=== PATIENT | female | born 1995 | race Caucasian/White ===

== ENCOUNTER 2019-07-13 20:38 | Emergency (ER) | payer BC, SELFPAY ==
[2019-07-13] MEDS ORDERED: KETOROLAC 30 MG/ML INJ ONE (21:13)
[2019-07-13 21:26] LABS: Absolute Lymphocytes (CBC) 1.6 K/uL (0.7-4.9); Basophils % 0.3 % (0-1.3); Hematocrit 40.7 % (36.0-45.0); Lymphocytes % 15.1 % (15.3-44.8); MPV 9.8 fL (7.6-11.3); RBC Red Blood Cell Count 5.08 M/uL (3.86-4.86)
[2019-07-13 21:43] LABS: Albumin 3.8 g/dL (3.4-5.0); Bilirubin Direct 0.1 mg/dL (0-0.2); Bilirubin Total 0.4 mg/dL (0.2-1.0); Potassium 3.4 mmol/L (3.5-5.1); Protein, Total 7.4 g/dL (6.4-8.2)
--- NOTE | 2019-07-13 21:47 | RAD REPORT ---
EXAM DESCRIPTION: CT - Stone Protocol - 07/13/2019 9:33 pm CLINICAL HISTORY: Abdominal pain. Flank pain COMPARISON: None. TECHNIQUE: Computed axial tomography of the abdomen pelvis was obtained without oral or IV contrast. Lack of IV and oral contrast limits evaluation of solid organs, bowel, and vessels. Coronal reformat marcellus images were obtained and reviewed. All CT scans are performed using dose optimization technique as appropriate and may include automated exposure control or mA/KV adjustment according to patient size. FINDINGS: Multiple, bilateral renal calculi. Eafc-zf-piihuwwt right hydronephrosis. Right ureter is dilated. 6 millimeter calculus distal right ureter Hounsfield unit 930 The liver, spleen, pancreas and adrenals appear grossly normal There is no evidence of diverticulitis. The appendix appears normal Small amount of free fluid IMPRESSION: A 6 millimeter calculus distal right ureter resulting in mild to moderate right hydronep hrosis
[2019-07-13] MEDS ORDERED: TAMSULOSIN 0.4 MG SR CAP ONE (21:58)
[2019-07-13] MEDS ORDERED: Magnesium Sulfate 2gm IVPB 2 G/50 ML BAG IV ONE (21:58)
--- NOTE | 2019-07-13 22:11 | ER ---
Nurse's Notes [facility] Name: Mari Gonzalez Age: 23 yrs Sex: Female : 1995 Arrival Date: 07/13/2019 Time: 20:41 Bed 20 Private MD: Diagnosis: Calculus of kidney and ureter Presentation: 07/12 20:48 Chief complaint: Patient states: right flank pain started at 1500 today, 5/10 at the rv moment. also complaining of vaginal pain, nausea, and vomiting. Coronavirus screen: Proceed with normal triage. Ebola Screen: No symptoms or risks identified at this time. Initial Sepsis Screen: Does the patient meet any 2 criteria? No. Patient's initial sepsis screen is negative. Does the patient have a suspected source of infection? No. Patient's initial sepsis screen is negative. Risk Assessment: Do you want to hurt yourself or someone else? Patient reports no desire to harm self or others. Onset of symptoms was July 13, 2019 at 15:00. 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 - Social history:: Smoking status: Patient denies any tobacco usage or history of. Screenin:03 Abuse screen: Denies threats or abuse. Nutritional screening: No deficits noted. ea Tuberculosis screening: No symptoms or risk factors identified. Fall Risk None identified. Assessment: 21:07 General: Appears uncomfortable, Behavior is calm, cooperative, appropriate for age. ea Pain: Complains of pain in right flank. Neuro: Level of Consciousness is awake, alert, obeys commands, Oriented to person, place, time, situation. Cardiovascular: Patient's skin is warm and dry. Respiratory: Airway is patent Respiratory effort is even, unlabored, Respiratory pattern is regular, symmetrical. Derm: Skin is pink, warm \T\ dry. 21:57 Reassessment: Patient and/or family updated on plan of care and expected duration. Pain ea level reassessed. Patient is alert, oriented x 3, equal unlabored respirations, skin warm/dry/pink. Pt reports pain has decreased. 22:17 Reassessment: Patient and/or family updated on plan of care and expected duration. Pain ea level reassessed. Patient is alert, oriented x 3, equal unlabored respirations, skin warm/dry/pink. Discharge instruction given to patient, verbalized the understanding of instruction. Awaiting on Mag to complete. 22:45 Reassessment: Patient and/or family updated on plan of care and expected duration. Pain ea level reassessed. Patient is alert, oriented x 3, equal unlabored respirations, skin warm/dry/pink. Pt left ED ambulatory tolerating well. Vital Signs: 20:48 BP 137 / 103; Pulse 73; Resp 18; Temp 97.7; Pulse Ox 100% ; Weight 68.04 kg; Height 5 rv ft. 6 in. (167.64 cm); Pain 5/10; 21:58 BP 114 / 75; Pulse 70; Resp 18; Pulse Ox 100% ; ea 22:18 BP 112 / 78; Pulse 71; Resp 18; Pulse Ox 100% ; ea 20:48 Body Mass Index 24.21 (68.04 kg, 167.64 cm) rv ED Course: 20:41 Patient arrived in ED. mr 20:44 Serena Jensen, [facility]ESSICA [facility]. kb 20:44 Mak Ro MD is Attending Physician. kb 20:50 Triage completed. rv 20:51 Arm band placed on Patient placed in the treatment room, on a stretcher, Patient rv notified of wait time. 21:00 Wendy Dang, STEFANO is Primary Nurse. ea 21:03 Patient has correct armband on for positive identification. Placed in gown. Bed in low ea position. Call light in reach. Side rails up X 1. 21:04 Radiology exam delayed due to test not completed at this time. mw3 21:20 Inserted saline lock: 20 gauge in right antecubital area, using aseptic technique. ea ,using aseptic technique. per [facility] tech Blood collected. 21:34 CT Stone Protocol In Process Unspecified. EDMS 22:17 No provider procedures requiring assistance completed. ea 22:44 IV discontinued, intact, bleeding controlled, No redness/swelling at site. Pressure ea dressing applied. Administered Medications: 21:10 Drug: TORadol - Ketorolac 15 mg Route: IVP; Site: right antecubital; ea 21:50 Follow up: Response: No adverse reaction ea 21:55 Follow up: Response: Pain is decreased ea 21:56 Drug: Magnesium Sulfate 2 grams Route: IVPB; Infused Over: 1 hrs; Site: right ea antecubital; 22:40 Follow up: Response: No adverse reaction; IV Status: Completed infusion ea 21:56 Drug: Flomax 0.4 mg Route: PO; ea 22:47 Follow up: Response: No adverse reaction ea Outcome: 22:10 Discharge ordered by . kb 22:17 Discharge instructions given to patient, Instructed on discharge instructions, follow ea up and referral plans. medication usage, Demonstrated understanding of instructions, follow-up care, medications, Prescriptions given X 3. 22:44 Discharged to home ambulatory. ea 22:44 Condition: stable 22:46 Patient left the ED. ea Signatures: Dispatcher [employer] EDMS Serena Jensen, YESSICA LEMONS-Archana Giraldo Elena, RN RN Angeline Anna mw3 Vipul Vazquez RN RN rv Corrections: (The following items were deleted from the chart) 20:51 20:50 LMP 06/21/2019 rv rv
--- NOTE | 2019-07-13 22:12 | EDPHYS ---
Physician Documentation [facility] Name: Mari Gonzalez Age: 23 yrs Sex: Female : 1995 Arrival Date: 07/13/2019 Time: 20:41 Bed 20 Private MD: ED Physician Mak Ro HPI: 07/12 21:04 This 23 yrs old Female presents to ER via Ambulatory with complaints of Flank kb Pain. 21:04 The patient complains of pain in the right flank. The pain does not radiate. Onset: The kb symptoms/episode began/occurred today, at 15:00. Modifying factors: The symptoms are alleviated by nothing. the symptoms are aggravated by nothing. Associated signs and symptoms: The patient has no apparent associated signs or symptoms. Severity of pain: At its worst the pain was moderate in the emergency department the pain is unchanged. The patient has not experienced similar symptoms in the past. The patient has not recently seen a physician. Pt reports right lateral abd pain/flank pain that started at 1500 today. Denies urinary symptoms. Reports she has had vaginal dryness for a few days and now it feels like the pain radiates from lateral abd to vagina.. 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 - Social history:: Smoking status: Patient denies any tobacco usage or history of. ROS: 21:03 Constitutional: Negative for fever, chills, and weight loss, Neck: Negative for injury, kb pain, and swelling, Cardiovascular: Negative for chest pain, palpitations, and edema, Respiratory: Negative for shortness of breath, cough, wheezing, and pleuritic chest pain, Back: Negative for injury and pain, MS/Extremity: Negative for injury and deformity, Skin: Negative for injury, rash, and discoloration, Neuro: Negative for headache, weakness, numbness, tingling, and seizure. 21:03 Abdomen/GI: Positive for abdominal pain, Negative for nausea, vomiting, and diarrhea, constipation. 21:03 : Positive for flank pain, vaginal pain. Exam: 21:03 Constitutional: This is a well developed, well nourished patient who is awake, alert, kb and in no acute distress. Head/Face: Normocephalic, atraumatic. Chest/axilla: Normal chest wall appearance and motion. Nontender with no deformity. No lesions are appreciated. Cardiovascular: Regular rate and rhythm with a normal S1 and S2. No gallops, murmurs, or rubs. Normal PMI, no JVD. No pulse deficits. Respiratory: Lungs have equal breath sounds bilaterally, clear to auscultation and percussion. No rales, rhonchi or wheezes noted. No increased work of breathing, no retractions or nasal flaring. Back: No spinal tenderness. No costovertebral tenderness. Full range of motion. Skin: Warm, dry with normal turgor. Normal color with no rashes, no lesions, and no evidence of cellulitis. MS/ Extremity: Pulses equal, no cyanosis. Neurovascular intact. Full, normal range of motion. Neuro: Awake and alert, GCS 15, oriented to person, place, time, and situation. Cranial nerves II-XII grossly intact. Motor strength 5/5 in all extremities. Sensory grossly intact. Cerebellar exam normal. Normal gait. 21:03 Abdomen/GI: Inspection: abdomen appears normal, Bowel sounds: normal, in all quadrants, Palpation: soft, in all quadrants, mild abdominal tenderness, in the right upper quadrant and right lower quadrant. Vital Signs: 20:48 BP 137 / 103; Pulse 73; Resp 18; Temp 97.7; Pulse Ox 100% ; Weight 68.04 kg; Height 5 rv ft. 6 in. (167.64 cm); Pain 5/10; 21:58 BP 114 / 75; Pulse 70; Resp 18; Pulse Ox 100% ; ea 22:18 BP 112 / 78; Pulse 71; Resp 18; Pulse Ox 100% ; ea 20:48 Body Mass Index 24.21 (68.04 kg, 167.64 cm) rv MDM: 20:52 Patient medically screened. kb 21:03 Data reviewed: vital signs, nurses notes. Data interpreted: Pulse oximetry: on room air kb is 100 %. Interpretation: normal. 22:09 Counseling: I had a detailed discussion with the patient and/or guardian regarding: the kb historical points, exam findings, and any diagnostic results supporting the discharge/admit diagnosis, lab results, radiology results, the need for outpatient follow up, a urologist, to return to the emergency department if symptoms worsen or persist or if there are any questions or concerns that arise at home. ED course: Pain controlled at this time. Pt educated on plan for outpatient follow up. Verbal understanding received. . 07/12 21: Order name: Basic Metabolic Panel; Complete Time: 21:45 kb 07/12 21: Order name: CBC with Diff; Complete Time: 21:35 kb 07/12 21: Order name: Hepatic Function; Complete Time: 21:45 kb 07/12 21: Order name: Lipase; Complete Time: 21:45 kb 07/12 21:19 Order name: Urine Dipstick--Ancillary (enter results); Complete Time: 22:32 sg 07/12 21:19 Order name: Urine --Ancillary (enter results); Complete Time: 22:32 sg 07/12 20:53 Order name: Urine Dipstick-Ancillary (obtain specimen); Complete Time: 21:20 kb 07/12 21: Order name: IV Saline Lock; Complete Time: 21:20 kb 07/12 21: Order name: Labs collected and sent; Complete Time: 21:20 kb 07/12 21: Order name: CT Stone Protocol; Complete Time: 21:48 kb 07/12 21: Order name: Urine Test (obtain specimen); Complete Time: 21:20 kb Administered Medications: 21:10 Drug: TORadol - Ketorolac 15 mg Route: IVP; Site: right antecubital; ea 21:50 Follow up: Response: No adverse reaction ea 21:55 Follow up: Response: Pain is decreased ea 21:56 Drug: Magnesium Sulfate 2 grams Route: IVPB; Infused Over: 1 hrs; Site: right ea antecubital; 22:40 Follow up: Response: No adverse reaction; IV Status: Completed infusion ea 21:56 Drug: Flomax 0.4 mg Route: PO; ea 22:47 Follow up: Response: No adverse reaction ea Disposition: 07/13 06:43 Co-signature as Attending Physician, Mak Ro MD I agree with the assessment and 4 plan of care. Disposition: 07/13/19 22:10 Discharged to Home. Impression: Calculus of kidney and ureter. - Condition is Stable. - Discharge Instructions: Kidney Stones, [id number], Dietary Guidelines to Help Prevent Kidney Stones. - Prescriptions for Zofran 4 mg Oral Tablet - take 1 tablet by ORAL route every 6 hours As needed; 20 tablet. Flomax 0.4 mg Oral Capsule, Sust. Release 24 hr - take 1 capsule by ORAL route once daily; 10 capsule. Diclofenac Sodium 75 mg Oral Tablet, Delayed Release (E.C.) - take 1 tablet by ORAL route 2 times per day As needed; 30 tablet. - Medication Reconciliation Form, Thank You Letter, Antibiotic Education, Prescription Opioid Use form. - Follow up: Emergency Department; When: As needed; Reason: Worsening of condition. Follow up: Private Physician; When: 2 - 3 days; Reason: Recheck today's complaints, Continuance of care, Re-evaluation by your physician. Signatures: Dispatcher [employer] EDSerena Llamas, Wendy Sanchez RN RN Mak Min MD MD tw4 Vipul Vazquez RN RN rv Corrections: (The following items were deleted from the chart) 07/12 22:46 22:10 07/13/2019 22:10 Discharged to Home. Impression: Calculus of kidney and ureter. ea Condition is Stable. Forms are Medication Reconciliation Form, Thank You Letter, Antibiotic Education, Prescription Opioid Use. Follow up: Emergency Department; When: As needed; Reason: Worsening of condition. Follow up: Private Physician; When: 2 - 3 days; Reason: Recheck today's complaints, Continuance of care, Re-evaluation by your physician. kb
[2019-07-13 22:27] LABS: Urine Blood 2+ (NEG); Urine Glucose NEGATIVE (NEG); Urine Protein NEGATIVE (NEG); Urine Specific Gravity >1.030 (1.005-1.030)
[2019-07-13 23:25] VITALS: TEMP 97.7; O2SAT 100
[2019-07-13 23:27] VITALS: BP 112/78
== END 2019-07-13 22:46 | disposition home or self-care (01) ==
LOC: ER 20:38
DX: N20.2 Calculus of kidney with calculus of ureter (principal)
CPT/HCPCS: 36415; 74176; 76377; 80048; 80076; 81003; 81025; 83690; 85025; 96365; 96375; 99284; J3475

== ENCOUNTER 2019-07-16 18:06 | Inpatient (IN) | payer SELFPAY ==
--- OUTSIDE RECORDS SUMMARY | 2019-07-16 18:08 | XMS REPORT | Summary of Care ---
:1995 Author Organization [facility] Address [address] [place] [id number] Care Team Providers Name Role Phone Adilson Swain MD Primary Care Provider Pcp, Does Not Have A Unavailable Pcp, Does Not Have A Unavailable Reason for Referral (Routine) Status Reason Specialty Diagnoses / Referred By Referred To Procedures Contact Contact New Request Pediatric Diagnoses 22 weeks gestation of Encounter for supervision of normal first , second trimester Apolinar Ortiz Procedures CONSULT GENETICS TERRIE Espinoza [address] [place] [address] [address] [place] [address] Reason for Visit Reason Comments ROUTINE VISIT Auth/Cert Status Reason Specialty Diagnoses / Referred By Referred To Procedures Contact Contact Clinical Medical Diagnoses Currently in first trimester with unknown gestational age [facility] Lab Laboratory Procedures AFP MATERNAL SERUM #1 [address] [facility] [place] [address] Encounter Details Date Type Department Care Team Description 10/03/2018 Routine [facility] Women's Olga Ortiz, Encounter for supervision of normal first , second trimester (Primary Dx); Visit Carmen FALCON 22 weeks gestation of [address] [place] [phone] Allergies No Known Allergiesdocumented as of this encounter (statuses as of 10/03/2018) Medications Medication Sig Dispensed Refills Start Date End Date Status Take by mouth. 0 Acti ve 123/iron/folic/omeg3s (ONE-A-DAY WOMEN'S 1 ORAL) [id number],carb,glu-FA- Take 1 TAB-CAP/M2 30 Each 9 06/12/19 19 Active dss-dha (CITRANATAL by mouth daily. DHA, ALGAL OIL,) 27 mg iron-1 mg -50 mg-250 mg CmpkIndications: Supervision of normal first in first trimester documented as of this encounter (statuses as of 10/03/2018) Active Problems Estimated Date of Delivery Comments Yes 02/04/2019 Based on last menstr ual period of 04/30/2018 (Within Days) No known active problemsdocumented as of this encounter (statuses as of 10/03/2018) Immunizations Name Administration Dates Next Due Influenza Virus Vaccine Quad .5 mL IM 6+ MO 06/11/2018 Tdap 01/22/2017 documented as of this encounter Social History Tobacco Use Types Packs/Day Years Used Date Never Smoker Smokeless Tobacco: Never Used Alcohol Use Drinks/Week oz/Week Comments No Estimated Date of Delivery Comments Yes 02/04/2019 Based on last menstr ual period of 04/30/2018 (Within Days) Sex Assigned at Date Recorded Not on file Job Start Date Occupation Industry Not on file Not on file Not on file Travel History Travel Start Travel End No recent travel history available. documented as of this encounter Last Filed Vital Signs Vital Sign Reading Time Taken Comments Blood Pressure 124/73 10/03/2018 4:15 PM CDT Pulse 77 10/03/2018 4:15 PM CDT Temperature 36.4 C (97.6 F) 10/03/2018 4:15 PM CDT Respiratory Rate 18 10/03/2018 4:15 PM CDT Oxygen Saturation - - Inhaled Oxygen Concentration - - Weight 72.6 kg (160 lb) 10/03/2018 4:15 PM CDT Height 167.6 cm (5' 6") 10/03/2018 4:15 PM CDT Body Mass Index 25.82 10/03/2018 4:15 PM CDT documented in this encounter Progress Notes Olga Ortiz PA-C - 10/03/2018 4:00 PM CDT Chief complaint: Chief Complaint Patient presents with ROUTINE VISIT HPI Mari Gonzalez is a 23 year old female @ 22w2d coming in for PN visit. She has no complaints and reports is doing well. Patient denies any abnormal/pelvic pain, discharge, dysuria, hematuria, abnormal bleeding. Histories OB History Para Term AB Living 1 0 0 0 0 SAB TAB Ectopic Multiple Live Births 0 0 0 # Outcome Date GA Lbr Oswaldo/2nd Weight Sex Delivery Anes PTL Lv 1 Current No past medical history on file. Family History Problem Relation Age of Onset Cervical Cancer Mother No Significant Medical Problems Father Lung Cancer Maternal Grandfather Cancer Paternal Grandmother Mouth or tongue cancer Family Status Relation Name Status Mo Fa Alive MGFa (Not Specified) PGMo Alive No past surgical history on file. Social History Socioeconomic History Marital status: Single Spouse name: Not on file Number of children: Not on file Years of education: Not on file Highest education level: Not on file Occupational History Not on file Social Needs Financial resource strain: Not on file Food insecurity: Worry: Not on file Inability: Not on file Transportation needs: Medical: Not on file Non-medical: Not on file Tobacco Use Smoking status: Never Smoker Smokeless tobacco: Never Used Substance and Sexual Activity Alcohol use: No Drug use: No Sexual activity: Yes Partners: Male Lifestyle Physical activity: Days per week: Not on file Minutes per session: Not on file Stress: Not on file Relationships Social connections: Talks on phone: Not on file Gets together: Not on file Attends hoahaoism service: Not on file Active member of club or organization: Not on file Attends meetings of clubs or organizations: Not on file Relationship status: Not on file Intimate partner violence: Fear of current or ex partner: Not on file Emotionally abused: Not on file Physically abused: Not on file Forced sexual activity: Not on file Other Topics Concern Not on file Social History Narrative Merged History Encounter Data from: 01/22/17 Enc Dept: [facility]ARE 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 Medications Mari has a current medication list which includes the following prescription(s): [id number],carb,tww-hb-cwv-dha and 123/iron/folic/omeg3s. Review of Systems Constitutional: Negative for appetite change, fatigue and fever. HENT: Negative for rhinorrhea and sore throat. Eyes: Negative for pain and itching. Respiratory: Negative for cough, chest tightness and shortness of breath. Breasts: Negative for discharge, mass and pain. Cardiovascular: Negative for chest pain, palpitations and leg swelling. Gastrointestinal: Negative for abdominal pain, constipation, diarrhea and nausea. Genitourinary: Negative for bladder incontinence, dysuria, vaginal discharge, difficulty urinating, vaginal pain and pelvic pain. Musculoskeletal: Negative for gait problem and myalgias. Skin: Negative for rash. Neurological: Negative for dizziness and headaches. Psychiatric/Behavioral: Negative for suicidal ideas. The patient is not nervous/anxious. Endocrine: Negative for hair loss. BP 124/73 (BP Location: Left arm, Patient Position: Sitting, BP CUFF SIZE: Adult Medium) | Pulse 77 | Temp 36.4 C (97.6 F) (Oral) | Resp 18 | Ht 5' 6" (1.676 m) | Wt 160 lb (72.6 kg) | LMP 04/30/2018 (Within Days) | BMI 25.82 kg/m Pregravid BMI: 23.1 Physical Exam Vitals reviewed. Constitutional: She is oriented to person, place, and time. She appears well- developed and well-nourished. Neck: No mass. No thyromegaly palpated. No neck adenopathy. Cardiovascular: Regular rate and rhythm. Pulmonary/Chest: Normal inspiratory effort. Abdominal: Abdomen is soft. No tenderness present. No hernia palpated or inspected. Neuro/Psychiatric: She has a normal mood and affect. She is oriented to person, place, and time. Skin: Skin normal. Lymphadenopathy: No neck adenopathy present. No axillary adenopathy present. No inguinal adenopathy present. Assessment/Plan SEE OB SUMMARY Return to clinic in 4 weeks. Discussed treatment options. Reviewed patient instructions and provided printed copy. Activity restrictions: As tolerated This visit did not involve counseling and coordination that comprised more than 50% of the visit time. 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 [place], [place] [address] [phone] Health Maintenance Due Date Last Done Comments VARICELLA VACCINES (1 of 2 - 13+ 2006 2-dose series) HPV VACCINES (1 - Female 3-dose 2008 series) PAP SMEAR 2014 INFLUENZA VACCINE 10/27/2018 06/11/2018 DTaP,Tdap,and Td Vaccines (2 - Td) 01/22/2027 01/22/2017 PNEUMOCOCCAL 0-64 YEARS COMBINED Aged Out No longer eligible based on SERIES patient's age to complete this topic documented as of this encounter Procedures Procedure Name Priority Date/Time Associated Diagnosis Comme nts POCT URINALYSIS W/O Routine 10/03/2018 22 weeks gestation of Results for this SPECIFIC GRAVITY procedure a re in the results section . documented in this encounter Results POCT URINALYSIS W/O SPECIFIC GRAVITY (10/03/2018) Pathologist Sig nature POCT PH U N/A 5 - 8 mg/dl POCT U LEUK EST N/A Negative - Negative POCT U NIT N/A Negative - Negative POCT U PROT Negative Negative - Negative POCT U GLU Negative Negative - Negative POCT U KETONE N/A Negative - Negative POCT U BLD N/A Negative - Negative Specimen Urine - URINE, CLEAN CATCH documented in this encounter Visit Diagnoses Diagnosis Encounter for supervision of normal firs t , second trimester - Primary 22 weeks gestation of state, incidental documented in this encounter Insurance Payer Benefit Plan / Subscriber ID Effective Phone Address T ype Group Dates [facility] [id number] 2017-Prese [phone]PO/POS nt [id number] [place], [place] [id number] [place] [address] [phone] 2018-[facility] HE[facility] - MANAGED MEDICAID documented as of this encounter
--- OUTSIDE RECORDS SUMMARY | 2019-07-16 18:08 | XMS REPORT | Summary of Care ---
:1993 Author Organization [facility] - Health Address [address] [place] [address] Care Team Providers Name Role Phone Adilson Swain MD Primary Care Provider Pcp, Does Not Have A Unavailable Pcp, Does Not Have A Unavailable Encounter Details Date Type Department Care Team Description 10/03/2018 Orders Only [facility] Doctor Unassigned, No 301 [facility] [place] [address] 301 [place] [address] Allergies No Known Allergiesdocumented as of this encounter (statuses as of 10/03/2018) Medications Medication Sig Dispensed Refills Start Date End Date Status Take by mouth. 0 Acti ve 123/iron/folic/omeg3s (ONE-A-DAY WOMEN'S 1 ORAL) BKF30-bgez,carb,glu-FA- Take 1 TAB-CAP/M2 30 Each 9 06/12/19 [...] of this encounter Last Filed Vital Signs Not on filedocumented in this encounter Plan of Treatment Date Type Specialty Care Team Description 10/11/2018 Inking Machine Tender Visit Obstetrics & Ultrasound, Adc Mfdennys Gynecology 10/31/2018 Routine Visit Obstetrics & Swain, Jeannie De Anda MD Gynecology [address] [place] [address] DR. [place], [place] [address] [phone] Health Maintenance Due Date Last Done Comments [...] Name Priority Date/Time Associated Diagnosis Comme nts ASSIGNMENT OF BENEFITS Routine 10/03/2018 4:45 PM CDT documented in this encounter Results Not on filedocumented in this encounter Insurance Payer Benefit Plan / Subscriber ID Effective Phone Address T ype Group Dates BCBS [facility] [place] [id number] 2017-Prese [phone] O BOX PPO/POS nt [phone] [id number] [place] [address] [facility] CHILDRENS xxxxxxxxx 2018-Prese [place] CHILDRENS HEALTH HEALTH PLAN - MANAGED MEDICAID documented as of this encounter
--- OUTSIDE RECORDS SUMMARY | 2019-07-16 18:08 | XMS REPORT | Summary of Care ---
:1993 Author Organization [facility] Address [address] [place] [address] Care Team Providers Name Role Phone Adilson Swain MD Primary Care Provider Pcp, Does Not Have A Unavailable Pcp, Does Not Have A Unavailable Reason for Visit Reason Comments LAB WORK Auth/Cert Status Reason Specialty Diagnoses / Referred By Referred To Procedures Contact Contact Clinical Medical Diagnoses Currently in first trimester with unknown gestational age [facility] Lab Laboratory Procedures AFP MATERNAL SERUM #1 [address] [facility] [place] [address] Encounter Details Date Type Department Care Team Description 10/03/2018 Cake Decorator Visit [facility] Jeannie Swain MD [address] [facility] [address] Carlisle [place] [facility] [place] [address] Supervision of normal first in first trimester; Phlebotomy 1, [facility] Lab 18 weeks gestation of Lab-[address] [place] [address] Allergies No Known Allergiesdocumented as of this encounter (statuses as of 10/03/2018) Medications Medication Sig Dispensed Refills Start Date End Date Status Take by mouth. 0 Acti ve 123/iron/folic/omeg3s (ONE-A-DAY WOMEN'S 1 ORAL) UNP32-wzti,carb,glu-FA- Take 1 TAB-CAP/M2 30 Each 9 06/12/19 [...] Date Type Specialty Care Team Description 10/11/2018 Cake Decorator Visit Obstetrics & Ultrasound, Adc Mf Gynecology 10/31/2018 Routine Visit Obstetrics & Swain, Jeannie De Anda MD Gynecology [address] [place] [address] DR. [place], [place] [address] [phone] Name Type Priority Associated Diagnoses Date/Ti me ALPHA LAB Routine Supervision of normal 2018 5:02 PM CDT FETOPROTEIN-MATERNAL first in f irst SER trimester 18 weeks gestation of Health Maintenance Due Date Last Done Comments VARICELLA VACCINES (1 of 2 - 13+ 2006 2-dose series) HPV VACCINES (1 - Female 3-dose 2008 series) PAP SMEAR 2014 INFLUENZA VACCINE 10/27/2018 06/11/2018 DTaP,Tdap,and Td Vaccines (2 - Td) 01/22/2027 01/22/2017 PNEUMOCOCCAL 0-64 YEARS COMBINED Aged Out No longer eligible based on SERIES patient's age to complete this topic documented as of this encounter Results Not on filedocumented in this encounter Visit Diagnoses Diagnosis Supervision of normal first in first trimester 18 weeks gestation of state, incidental documented in this encounter Insurance Payer Benefit Plan / Subscriber ID Effective Phone Address T ype Group Dates [facility] [id number] 2017-Rebecca [phone] [address] B[address] PPO/POS nt [id number] [place] [address] [facility] xxxxxxxxx 2018-Rebecca [facility] CHILDRENS [facility] HEALTH PLAN - MANAGED MEDICAID documented as of this encounter
--- OUTSIDE RECORDS SUMMARY | 2019-07-16 18:09 | XMS REPORT | Summary of Care ---
:1993 Author Organization [facility] - Health Address [address] [place] [address] Care Team Providers Name Role Phone Adilson Swain MD Primary Care Provider Pcp, Does Not Have A Unavailable Pcp, Does Not Have A Unavailable Encounter Details Date Type Department Care Team Description 11/14/2018 Orders Only [facility] Doctor Unassigned, No 301 [facility] [place] [address] 301 [place] [address] Allergies No Known Allergiesdocumented as of this encounter (statuses as of 11/14/2018) Medications Medication Sig Dispensed Refills Start Date End Date Status Take by mouth. 0 Acti ve 123/iron/folic/omeg3s (ONE-A-DAY WOMEN'S 1 ORAL) TER36-yxod,carb,glu-FA- Take 1 TAB-CAP/M2 30 Each 9 06/12/19 19 Active dss-dha (CITRANATAL by mouth daily. DHA, ALGAL OIL,) 27 mg iron-1 mg -50 mg-250 mg CmpkIndications: Supervision of normal first in first trimester documented as of this encounter (statuses as of 11/14/2018) Active Problems Estimated Date of Delivery Comments Yes 02/04/2019 Based on last menstr ual period of 04/30/2018 (Within Days) No known active problemsdocumented as of this encounter (statuses as of 11/14/2018) Immunizations Name Administration Dates Next Due Influenza [...] Treatment Date Type Specialty Care Team Description 11/14/2018 Glass Furnace Tender Visit Clinical Medical Devin Ortiz, PAHiramC [address] [place] [address] [address] [place] [address] Laboratory 1, Adc Lab 11/28/2018 Routine Visit Obstetrics & Swain, Jeannie De Anda MD Gynecology [address] [place] [address] DRReyna [facility] [address] [place], [place] [address] Health Maintenance Due Date Last Done Comments VARICELLA VACCINES (1 of 2 - 13+ 2006 2-dose series) HPV VACCINES (1 - Female 3-dose 2008 series) PAP SMEAR 2014 INFLUENZA VACCINE (#1) 2018 06/11/2018 DTaP,Tdap,and Td Vaccines (2 - Td) 01/22/2027 01/22/2017 PNEUMOCOCCAL 0-64 YEARS COMBINED Aged Out No longer eligible based on SERIES patient's age to complete this topic documented as of this encounter Procedures Procedure Name Priority Date/Time Associated Diagnosis Comme nts ASSIGNMENT OF BENEFITS Routine 11/14/2018 10:14 AM CDT documented in this encounter Results Not on filedocumented in this encounter Insurance Payer Benefit Plan / Subscriber ID Effective Phone Address T ype Group Dates [facility] [id number] 2017-Rebecca [phone] P O BOX PPO/POS nt [phone] [place] [address] [facility] CHILDRENS xxxxxxxxx 2018-Rebecca Md [facility] HEALTH PLAN - MANAGED MEDICAID documented as of this encounter
--- OUTSIDE RECORDS SUMMARY | 2019-07-16 18:09 | XMS REPORT | Summary of Care ---
:1993 Author Organization [facility] - Health Address [address] [place] [address] Care Team Providers Name Role Phone Adilson Swain MD Primary Care Provider Pcp, Does Not Have A Unavailable Pcp, Does Not Have A Unavailable Encounter Details Date Type Department Care Team Description 09/05/2018 Orders Only [facility] Doctor Unassigned, No 301 [facility] [place] [address] 301 [place] [address] Allergies No Known Allergiesdocumented as of this encounter (statuses as of 10/04/2018) Medications Medication Sig Dispensed Refills Start Date End Date Status Take by mouth. 0 Acti ve 123/iron/folic/omeg3s (ONE-A-DAY WOMEN'S 1 ORAL) HRF69-lzsg,carb,glu-FA- Take 1 TAB-CAP/M2 30 Each 9 06/12/19 19 Active dss-dha (CITRANATAL by mouth daily. DHA, ALGAL OIL,) 27 mg iron-1 mg -50 mg-250 mg CmpkIndications: Supervision of normal first in first trimester documented as of this encounter (statuses as of 10/04/2018) Active Problems Estimated Date of Delivery Comments Yes 02/04/2019 Based on last menstr ual period of 04/30/2018 (Within Days) No known active problemsdocumented as of this encounter (statuses as of 10/04/2018) Immunizations Name Administration Dates Next Due Influenza [...] Date Type Specialty Care Team Description 10/11/2018 Baster Hand Visit Obstetrics & Ultrasound, Adc Mfdennys Gynecology 10/31/2018 Routine Visit Obstetrics & Swain, Jeannie De Anda MD Gynecology [address] [place] [address] DR. [place]isle [place], [place] [address] [phone] Health Maintenance Due Date Last Done Comments [...] Name Priority Date/Time Associated Diagnosis Comme nts PHYSICIAN ORDERS Routine 09/05/2018 12:01 AM CDT documented in this encounter Results Not on filedocumented in this encounter Insurance Payer Benefit Plan / Subscriber ID Effective Phone Address T ype Group Dates [place] [id number] 2017-Prese [phone] [address] B[address] PPO/POS nt [id number] [place] [address] [facility] CHILDRENS xxxxxxxxx 2018-Prese [place] CHILDRENS HEALTH HEALTH PLAN - MANAGED MEDICAID documented as of this encounter
--- OUTSIDE RECORDS SUMMARY | 2019-07-16 18:09 | XMS REPORT | Summary of Care ---
:1993 Author Organization [facility] Address [address] [place] [address] Care Team Providers Name Role Phone Adilson Swain MD Primary Care Provider Pcp, Does Not Have A Unavailable Pcp, Does Not Have A Unavailable Reason for Visit Reason Comments ROUTINE VISIT Encounter Details Date Type Department Care Team Description 10/31/2018 Routine [facility] Jeannie Swain am, MD [address] [place] [address] [address] Encounter for supervision of normal firs t , second trimester (Primary Dx); Visit Healthcare- Olga Ortiz PA-C [address] [place] [address] 208 [place] [address] 26 weeks gestation of [address], [address] [place] [address] Allergies No Known Allergiesdocumented as of this encounter (statuses as of 10/31/2018) Medications Medication Sig Dispensed Refills Start Date End Date Status Take by mouth. 0 Acti ve 123/iron/folic/omeg3s (ONE-A-DAY WOMEN'S 1 ORAL) ORY00-vube,carb,glu-FA- Take 1 TAB-CAP/M2 30 Each 9 06/12/19 19 Active dss-dha (CITRANATAL by mouth daily. DHA, ALGAL OIL,) 27 mg iron-1 mg -50 mg-250 mg CmpkIndications: Supervision of normal first in first trimester documented as of this encounter (statuses as of 10/31/2018) Active Problems Estimated Date of Delivery Comments Yes 02/04/2019 Based on last menstr ual period of 04/30/2018 (Within Days) No known active problemsdocumented as of this encounter (statuses as of 10/31/2018) Immunizations Name Administration Dates Next Due Influenza [...] Sign Reading Time Taken Comments Blood Pressure 117/77 10/31/2018 3:53 PM CDT Pulse 85 10/31/2018 3:53 PM CDT Temperature 36.9 C (98.5 F) 10/31/2018 3:53 PM CDT Respiratory Rate 18 10/31/2018 3:53 PM CDT Oxygen Saturation - - Inhaled Oxygen Concentration - - Weight 76 kg (167 lb 9.6 oz) 10/31/2018 3:53 PM CDT Height 167.6 cm (5' 6") 10/31/2018 3:53 PM CDT Body Mass Index 27.05 10/31/2018 3:53 PM CDT documented in this encounter Progress Notes Olga Ortiz PA-C - 10/31/2018 3:30 PM CDT Chief complaint: Chief Complaint Patient presents with ROUTINE VISIT HPI Mari Gonzalez is a 23 year old female @ 26w2d coming in for PN visit. 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 Medications Mari has a current medication list which includes the following prescription(s): zal06-xefs,carb,whq-yn-qzs-dha and 123/iron/folic/omeg3s. Review of Systems Constitutional: Negative [...] nervous/anxious. Endocrine: Negative for hair loss. BP 117/77 (BP Location: Right arm, Patient Position: Sitting, BP CUFF SIZE: Adult Small) | Pulse 85 | Temp 36.9 C (98.5 F) (Oral) | Resp 18 | Ht 5' 6" (1.676 m) | Wt 167 lb 9.6 oz (76 kg) | LMP 04/30/2018 (Within Days) | BMI 27.05 kg/m Pregravid BMI: 23.1 Physical Exam Vitals [...] of the visit time. Olga Ortiz PA-C 10/31/2018 5:21 PM documented in this encounter Plan of Treatment Date Type Specialty Care Team Description 11/04/2018 Office Visit OB Satellites Consults, Rmchp Ang Pn Genetic 11/28/2018 Routine Obstetrics & Swain, Jeannie De Anda MD Visit Gynecology [address] [place] [address] DR. [address] [place] [address] [phone] Name Type Priority Associated Diagnoses Order S chedule CBC WITH DIFF LAB Routine 26 weeks gestation of Expec marcellus: 10/31/2018, Expires: 2018 WORKUP, BLOOD LAB Routine 26 weeks gestation of Expected: 10/31/2018, BANK Expires: 2018 [facility] ONLY - LAB Routine 26 weeks gestation of Expected: 10/31/2018, RPR Expires: 2018 [facility], [facility] OR [facility] ONLY - LAB Routine 26 weeks gestation of Expected: 10/31/2018, HIV TYPE 1 AND 2 Expires: ANTIBODY SCREEN WITH P24 GLUCOSE 1 HOUR POST LAB Routine 26 weeks gestation of Ordered: 10/31/2018 PRANDIAL Health Maintenance Due Date Last Done Comments [...] filedocumented in this encounter Visit Diagnoses Diagnosis Encounter for supervision of normal firs t , second trimester - Primary 26 weeks gestation of state, incidental documented in this encounter Insurance Payer Benefit Plan / Subscriber ID Effective Phone Address T ype Group Dates [facility] [id number] 2017-Rebecca [phone] [address] PPO/POS nt [id number] [place] [address] [facility] xxxxxxxxx 2018-Rebecca [place]icaid CHILDRENS HEALTH nt HEALTH PLAN - MANAGED MEDICAID documented as of this encounter
--- OUTSIDE RECORDS SUMMARY | 2019-07-16 18:09 | XMS REPORT | Summary of Care ---
:1993 Author Organization [facility] Address [address] [place] [address] Care Team Providers Name Role Phone Adilson Swain MD Primary Care Provider Pcp, Does Not Have A Unavailable Pcp, Does Not Have A Unavailable Reason for Visit Reason Comments Abdominal Pain Encounter Details Date Type Department Care Team Description 10/17/2018 Routine [facility] Women's Van[place]han, Olga, Pain pelvic (Primary Visit Healthcare- PA-C Dx) [address] [phone] Allergies No Known Allergiesdocumented as of this encounter (statuses as of 10/17/2018) Medications Medication Sig Dispensed Refills Start Date End Date Status Take by mouth. 0 Acti ve 123/iron/folic/omeg3s (ONE-A-DAY WOMEN'S 1 ORAL) GSJ10-scyo,carb,glu-FA- Take 1 TAB-CAP/M2 30 Each 9 06/12/19 19 Active dss-dha (CITRANATAL by mouth daily. DHA, ALGAL OIL,) 27 mg iron-1 mg -50 mg-250 mg CmpkIndications: Supervision of normal first in first trimester documented as of this encounter (statuses as of 10/17/2018) Active Problems Estimated Date of Delivery Comments Yes 02/04/2019 Based on last menstr ual period of 04/30/2018 (Within Days) No known active problemsdocumented as of this encounter (statuses as of 10/17/2018) Immunizations Name Administration Dates Next Due Influenza [...] Sign Reading Time Taken Comments Blood Pressure 122/77 10/17/2018 11:50 AM CDT Pulse 74 10/17/2018 11:50 AM CDT Temperature 36.8 C (98.2 F) 10/17/2018 11:50 AM CDT Respiratory Rate 18 10/17/2018 11:50 AM CDT Oxygen Saturation - - Inhaled Oxygen Concentration - - Weight 73.7 kg (162 lb 6.4 oz) 10/17/2018 11:50 AM CDT Height 167.6 cm (5' 6") 10/17/2018 11:50 AM CDT Body Mass Index 26.21 10/17/2018 11:50 AM CDT documented in this encounter Progress Notes Olga Ortiz PA-C - 10/17/2018 11:15 AM CDT Chief complaint: Chief Complaint Patient presents with Abdominal Pain HPI Mari Gonzalez is a 23 year old female @ 24w2d coming in concerned about less movements and LLQ pain to her abdomen. Patient denies any discharge, dysuria, hematuria, abnormal bleeding. 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 Medications Mari has a current medication list which includes the following prescription(s): 123/iron/folic/omeg3s and jvb66-scel,carb,rtu-bx-qnn-dha. Review of Systems Constitutional: Negative for appetite change, fatigue and fever. HENT: Negative for rhinorrhea and sore throat. Eyes: Negative for pain and itching. Respiratory: Negative for cough, chest tightness and shortness of breath. Breasts: Negative for discharge, mass and pain. Cardiovascular: Negative for chest pain, palpitations and leg swelling. Gastrointestinal: Negative for abdominal pain, constipation, diarrhea and nausea. Genitourinary: Positive for pelvic pain. Negative for bladder incontinence, dysuria, vaginal discharge, difficulty urinating and vaginal pain. Musculoskeletal: Negative for gait problem and myalgias. Skin: Negative for rash. Neurological: Negative for dizziness and headaches. Psychiatric/Behavioral: Negative for suicidal ideas. The patient is not nervous/anxious. Endocrine: Negative for hair loss. BP 122/77 (BP Location: Left arm, Patient Position: Sitting, BP CUFF SIZE: Adult Medium) | Pulse 74 | Temp 36.8 C (98.2 F) (Oral) | Resp 18 | Ht 5' 6" (1.676 m) | Wt 162 lb 6.4 oz (73.7 kg) |LMP 04/30/2018 (Within Days) | BMI 26.21 kg/m Pregravid BMI: 23.1 Physical Exam Vitals [...] inguinal adenopathy present. Assessment/Plan SEE OB SUMMARY FOLLOW-UP SCHEDULED FOR PN VISIT Discussed treatment options. Reviewed patient instructions and provided printed copy. Activity restrictions: As tolerated This visit did not involve counseling and coordination that comprised more than 50% of the visit time Olga Ortiz PA-C 10/17/2018 1:09 PM . documented in this encounter Plan of Treatment Date Type Specialty Care Team Description 10/31/2018 Routine Obstetrics & Swain, Jeannie De Anda MD Visit Gynecology [address] [place] [address] DR. [place] [place] [address] [phone] 11/04/2018 Office Visit OB Satellites Consults, Rmchp Ang Pn Genetic Health Maintenance Due Date Last Done Comments [...] filedocumented in this encounter Visit Diagnoses Diagnosis Pain pelvic - Primary Unspecified symptom associated with fema le genital organs documented in this encounter Insurance Payer Benefit Plan / Subscriber ID Effective Phone Address T ype Group Dates [facility] [id number] 2017-Rebecca [phone] [address] B[address] PPO/POS nt [id number] [place] [address] [facility] xxxxxxxxx 2018-Rebecca [facility] - MANAGED MEDICAID documented as of this encounter
--- OUTSIDE RECORDS SUMMARY | 2019-07-16 18:09 | XMS REPORT | Summary of Care ---
:1993 Author Organization [facility] Address [address] [place] [address] Care Team Providers Name Role Phone Adilson Swain MD Primary Care Provider Pcp, Does Not Have A Unavailable Pcp, Does Not Have A Unavailable Reason for Visit Reason Comments ULTRASOUND (Routine) Status Reason Specialty Diagnoses / Referred By Referred To Procedures Contact Contact Closed Maternal Diagnoses Supervision of normal first in first trimester 18 weeks gestation of Jeannie Swain MD Medicine Procedures CONSULT MATERNAL MEDICINE ULTRASOUND Preferred Location: [address] [place] [address] Encounter Details Date Type Department Care Team Description 10/11/2018 Recreation Worker Visit [facility] Women's Casper Blair MD 301 [facility] FR[address] [place] [address] Encounter for [facility] Ultrasound, [facility] screening [address] [place] [address] [address] [place] [address] Allergies No Known Allergiesdocumented as of this encounter (statuses as of 10/11/2018) Medications Medication Sig Dispensed Refills Start Date End Date Status Take by mouth. 0 Acti ve 123/iron/folic/omeg3s (ONE-A-DAY WOMEN'S 1 ORAL) GPE45-zfac,carb,glu-FA- Take 1 TAB-CAP/M2 30 Each 9 06/12/19 19 Active dss-dha (CITRANATAL by mouth daily. DHA, ALGAL OIL,) 27 mg iron-1 mg -50 mg-250 mg CmpkIndications: Supervision of normal first in first trimester documented as of this encounter (statuses as of 10/11/2018) Active Problems Estimated Date of Delivery Comments Yes 02/04/2019 Based on last menstr ual period of 04/30/2018 (Within Days) No known active problemsdocumented as of this encounter (statuses as of 10/11/2018) Immunizations Name Administration Dates Next Due Influenza [...] Swain, Jeannie De Anda MD Visit Gynecology [address] [place] [address] DR. [place], [place] [address] [phone] Health Maintenance Due Date Last Done Comments [...] this encounter Visit Diagnoses Diagnosis Encounter for screening for ma lformation using ultrasound documented in this encounter Insurance Payer Benefit Plan / Subscriber ID Effective Phone Address T ype Group Dates [facility] [id number] 2017-Rebecca [phone] [address] PPO/POS nt [id number] [place] [address] [facility] CHILDREN xxxxxxxxx 2018-Rebecca [facility] - [facility]ICAID documented as of this encounter
--- OUTSIDE RECORDS SUMMARY | 2019-07-16 18:09 | XMS REPORT | Summary of Care ---
:1993 Author Organization [facility] Address [address] [place] [address] Care Team Providers Name Role Phone Adilson Swain MD Primary Care Provider Pcp, Does Not Have A Unavailable Pcp, Does Not Have A Unavailable Encounter Details Date Type Department Care Team Description 10/17/2018 Patient Secure [facility] [address] [place] [address] [address] [place], [place] 289[address] Allergies No Known Allergiesdocumented as of this encounter (statuses as of 10/17/2018) Medications Medication Sig Dispensed Refills Start Date End Date Status Take by mouth. 0 Acti ve 123/iron/folic/omeg3s (ONE-A-DAY WOMEN'S 1 ORAL) CKU12-ajis,carb,glu-FA- Take 1 TAB-CAP/M2 30 Each 9 06/12/19 [...] Swain, Jeannie De Anda MD Visit Gynecology [address] [place] [address] DR. [place], [place] [address] [phone] 11/04/2018 Office Visit OB Satellites Consults, Rmchp [...] Effective Phone Address T ype Group Dates [facility] [employer] [id number] 2017-Prese [phone] P O B[address] PPO/POS nt [id number] [place] [address] [facility] xxxxxxxxx 2018-Prese [place] CHILDRENS HEALTH HEALTH PLAN - MANAGED MEDICAID documented as of this encounter
--- OUTSIDE RECORDS SUMMARY | 2019-07-16 18:10 | XMS REPORT | Summary of Care ---
:1995 Author Organization [facility] - Health Address [address] [place] [address] Care Team Providers Name Role Phone Adilson Swain MD Primary Care Provider Pcp, Does Not Have A Unavailable Pcp, Does Not Have A Unavailable Encounter Details Date Type Department Care Team Description 03/03/2019 Orders Only [facility] Doctor Unassigned, No [address] [facility] [place] [address] [address] [place] [address] Allergies No Known Allergiesdocumented as of this encounter (statuses as of 03/16/2019) Medications Medication Sig Dispensed Refills Start Date End Date Status vitamin w/FA Take 1 tablet by 100 tablet 3 01/30/2019 Active tabletIndications: 39 mouth daily. weeks gestation of , Encounter for elective induction of labor, Maternal varicella, non-immune, Rubella non-immune status, antepartum, Obesity (BMI 30-39.9), Liveborn infant, of almanzar , born in hospital by vaginal delivery docusate calcium 240 Take 1 capsule by 30 capsule 1 01/30/2019 Active mg capsuleIndications: mouth once daily 39 weeks gestation of as needed for , Encounter Constipation. for elective induction of labor, Maternal varicella, non-immune, Rubella non-immune status, antepartum, Obesity (BMI 30-39.9), Liveborn , of almanzar , born in hospital by vaginal delivery ferrous sulfate 325 mg Take 1 tablet by 60 tablet 2 01/30/2019 Active (65 mg iron) mouth 2 (two) tabletIndications: 39 times daily. weeks gestation of , Encounter for elective induction of labor, Maternal varicella, non-immune, Rubella non-immune status, antepartum, Obesity (BMI 30-39.9), Liveborn , of almanzar , born in hospital by vaginal delivery ibuprofen 600 mg Take 1 tablet by 30 tablet 1 01/30/2019 Active tabletIndications: 39 mouth every 6 weeks gestation of (six) hours as , Encounter needed (Pain). for elective induction Take with food or of labor, Maternal milk. varicella, non-immune, Rubella non-immune status, antepartum, Obesity (BMI 30-39.9), Liveborn , of almanzar , born in hospital by vaginal delivery norgestimate-ethinyl Take 1 tablet by 1 Package 6 03/04/2019 Active estradiol 0.25-35 mouth daily. mg-mcg per tabletIndications: Encounter for BCP ( control pills) initial prescription documented as of this encounter (statuses as of 03/16/2019) Active Problems Problem Noted Date Routine follow-up 03/04/2019 Encounter for BCP ( control pills) initial prescr iption 03/04/2019 Obesity (BMI 30-39.9) 01/28/2019 documented as of this encounter (statuses as of 03/16/2019) Resolved Problems Problem Noted Date Resolved Date Liveborn , of almanzar , born in hospital by 01/29/2019 03/03/2019 vaginal delivery 39 weeks gestation of 01/28/2019 03/03/19 20 Encounter for elective induction of labor 01/28/2019 03/03/2019 Maternal varicella, non-immune 01/28/2019 0 Rubella non-immune status, antepartum 01/28/2019 documented as of this encounter (statuses as of 03/16/2019) Immunizations Name Administration Dates Next Due Influenza Virus Vaccine Quad .5 mL IM 6+ MO 12/12/2018, 05/2712/13/2019 TDAP (ADACEL) VACCINE 11/28/2018 Tdap 01/22/2017 documented as of this encounter Social History Tobacco Use Types Packs/Day Years Used Date Never Smoker Smokeless Tobacco: Never Used Alcohol Use Drinks/Week oz/Week Comments No Sex Assigned at Date Recorded Not on file Job Start Date Occupation Industry Not on file Not on file Not on file Travel History Travel Start Travel End No recent travel history available. documented as of this encounter Last Filed Vital Signs Not on filedocumented in this encounter Plan of Treatment Date Type Specialty Care Team Description 09/01/2019 Office Visit Obstetrics & Gynecology Olga Ortiz PA-C [address] [place] [address] [phone] Health Maintenance Due Date Last Done Comments VARICELLA VACCINES (1 of 2 - 1994 2-dose childhood series) HPV VACCINES (1 - Female 2004 2-dose series) PAP SMEAR 2014 DTaP,Tdap,and Td Vaccines (3 11/28/2028 11/28/2018, - Td) 01/22/2017 INFLUENZA VACCINE Completed 12/12/2018, 06/11/2018 PNEUMOCOCCAL 0-64 YEARS Aged Out No longe r eligible based COMBINED SERIES on patient's age to complete [facility] documented as of this encounter Procedures Procedure Name Priority Date/Time Associated Diagnosis Comme nts CONSENT FOR ORAL Routine 03/03/2019 12:01 AM 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
--- OUTSIDE RECORDS SUMMARY | 2019-07-16 18:10 | XMS REPORT | Summary of Care ---
:1995 Author Organization [facility] Address [address] [place] [address] Care Team Providers Name Role Phone Adilson Swain MD Primary Care Provider Pcp, Does Not Have A Unavailable Pcp, Does Not Have A Unavailable Reason for Visit Reason Comments LAB WORK Auth/Cert Status Reason Specialty Diagnoses / Referred By Referred To Procedures Contact Contact Clinical Medical Diagnoses 26 weeks gestation of [facility] Laboratory Procedures GLUCOSE 1 HOUR POST PRANDIAL [address] [facility] [place] [address] Encounter Details Date Type Department Care Team Description 11/14/2018 Medical Technologist Generalist Visit [facility] Olga Ortiz PA-C [address] [place] [address] [address] [place] [address] 26 weeks gestation Phlebotomy 1, [facility] of Lab-[address] [place] [address] Allergies No Known Allergiesdocumented as of this encounter (statuses as of 11/14/2018) Medications Medication Sig Dispensed Refills Start Date End Date Status Take by mouth. 0 Acti ve 123/iron/folic/omeg3s (ONE-A-DAY WOMEN'S 1 ORAL) IMG64-eyuo,carb,glu-FA- Take 1 TAB-CAP/M2 30 Each 9 06/12/19 [...] Treatment Date Type Specialty Care Team Description 11/28/2018 Routine Obstetrics & Swain, Jeannie De Anda MD Visit Gynecology [address] [place] [address] [address]. [place] [place] [address] [phone] Name Type Priority Associated Diagnoses Date/Ti me CBC WITH DIFF LAB Routine 26 weeks gestation of 11/14 11:25 AM CDT ADC OR COLE ONLY - RPR LAB Routine 26 weeks gestat ion of 11/14/2018 11:25 AM CDT ADC, CLC OR LCC ONLY - HIV LAB Routine 26 weeks gesta tion of 11/14/2018 11:25 AM TYPE 1 AND 2 ANTIBODY CDT SCREEN WITH P24 CBC WITH DIFFERENTIAL LAB Routine 26 weeks gestation of 11/14/2018 11:25 AM CDT Health Maintenance Due Date Last Done Comments [...] filedocumented in this encounter Visit Diagnoses Diagnosis 26 weeks gestation of state, incidental documented in this encounter Insurance Payer Benefit Plan / Subscriber ID Effective Phone Address T ype Group Dates [facility] [id number] 2017-Rebecca [phone] [address] PPO/POS nt [id number] [place] [address] [facility] xxxxxxxxx 2018-Rebecca Brito [facility] HEALTH PLAN - MANAGED MEDICAID documented as of this encounter
--- OUTSIDE RECORDS SUMMARY | 2019-07-16 18:10 | XMS REPORT ---
:1995 Author Organization [facility] t Address [address] [place] [place] [address] Care Team Providers Name Role Phone Doctor Unassigned, Name Attending Clinician Unavailable Wiliam QUISPE, Adilson Attending Clinician 1, Lab Attending Clinician Unavailable Diana FALCON Attending Clinician Radu AGARWAL, A Attending Clinician Unavailable Ultrasound, Mfm Attending Clinician Unavailable Problems This patient has no known problems. Allergies, Adverse Reactions, Alerts This patient has no known allergies or adverse reactions. Medications This patient has no known medications. Procedures This patient has no known procedures. Encounters Start End Encounter Admission Attending Care Care Encounter Source Date/Time Date/Time Type Type Clinicians Facility Department ID 2019-03-03 2019-03-03 Orders Doctor CRAFT [id number] 00:00:00 00:00:00 Only UnassignedSTEFANIE [id number] [place] [facility] [id number] [id number] 2018-11-15 2018-11-15 Telephone Jeannie Swain WVITMOTHY [id number] 00:00:00 00:00:00 Adilson [place] [id number] [place] 4.2.7.2.686 [place] [phone] [address] 2018-11-14 2018-11-14 Supervisor Payroll 1, Jordy Lab [facility] [id number] 10:17:38 10:32:38 Visit Kendrick [id number] [place] 4.2.7.2.686 [place] [phone] [id number] 2018-11-14 2018-11-14 Orders Doctor LUANA [id number] 00:00:00 00:00:00 Only Unassigned, STEFANIE [id number] [place] [facility] [id number] [id number] 2018-11-14 2018-11-14 Case Diana, [facility] [id number] 00:00:00 00:00:00 Management Olga Kendrick [id number] [place] [id number] Professio [phone] [address] 2018-10-31 2018-10-31 Routine Diana [facility] [id number] 15:37:21 16:41:00 Olga Kendrick [id number] Visit [place] [id number] Professio [phone] [address] 2018-10-17 2018-10-17 Routine Diana [facility] [id number] 11:31:48 11:59:02 Olga Kendrick [id number] Visit [place] [id number] Professio [phone] [address] 2018-10-17 2018-10-17 Patient Radu, [facility] [id number] 00:00:00 00:00:00 Secure Msg Yomaira Loza [place] [id number] [place] [id number] Professio [phone] [address] 2018-10-11 2018-10-11 Supervisor Payroll Ultrasound, [facility] [id number] 13:01:24 14:02:01 Visit Adc Mfm Kendrick [id number] [place] [id number] Professio [phone] [address] 2018-10-03 2018-10-03 Supervisor Payroll 1, Adc Lab [facility] [id number] 16:51:25 17:06:25 Visit Kendrick [id number] [place] 4.2.7.2.686 [place] [phone] [id number] 2018-10-03 2018-10-03 Routine Diana, [facility] [id number] 15:58:55 16:37:15 Olgacesar [place] [id number] Visit [place] 4.2.7.[address] [facility] [phone] [address] 2018-10-03 2018-10-03 Orders Doctor LUANA [id number] 00:00:00 00:00:00 Only Unassigned, STEFANIE [id number] [place]2.7.2.686 [phone] [id number] 2018-09-05 2018-09-05 Orders Doctor LUANA [id number] 00:00:00 00:00:00 Only UnassignedSTEFANIE [id number] [place]2.7.2.686 [id number] [id number] Results This patient has no known results.
--- OUTSIDE RECORDS SUMMARY | 2019-07-16 18:10 | XMS REPORT | Summary of Care ---
:1995 Author Organization [facility] Address [address] [place] [address] Care Team Providers Name Role Phone Adilson Swain MD Primary Care Provider Pcp, Does Not Have A Unavailable Pcp, Does Not Have A Unavailable Reason for Visit Reason Comments Results Encounter Details Date Type Department Care Team Description 11/15/2018 Telephone [facility] Women's Jeannie Swain MD Results Healthcare- [address] [facility], [address] [facility] 20 8 208 [place] [address] [place] [address] [phone] Allergies No Known Allergiesdocumented as of this encounter (statuses as of 11/15/2018) Medications Medication Sig Dispensed Refills Start Date End Date Status Take by mouth. 0 Acti ve 123/iron/folic/omeg3s (ONE-A-DAY WOMEN'S 1 ORAL) SCQ35-uhto,carb,glu-FA- Take 1 TAB-CAP/M2 30 Each 9 06/12/19 19 Active dss-dha (CITRANATAL by mouth daily. DHA, ALGAL OIL,) 27 mg iron-1 mg -50 mg-250 mg CmpkIndications: Supervision of normal first in first trimester documented as of this encounter (statuses as of 11/15/2018) Active Problems Estimated Date of Delivery Comments Yes 02/04/2019 Based on last menstr ual period of 04/30/2018 (Within Days) No known active problemsdocumented as of this encounter (statuses as of 11/15/2018) Immunizations Name Administration Dates Next Due Influenza [...] Swain, Jeannie De Anda MD Visit Gynecology [address] [place] [address] [address]. [place] [place] [address] 15 [phone] Health Maintenance Due Date Last Done Comments [...] Effective Phone Address T ype Group Dates [facility] [id number] 2017-Prese [phone] [address] PPO/POS nt [phone] [id number] [place] [address] [facility] CHILDRENS xxxxxxxxx 2018-Prese [place] dicaid CHILDRENS HEALTH HEALTH PLAN - MANAGED MEDICAID documented as of this encounter
--- OUTSIDE RECORDS SUMMARY | 2019-07-16 18:10 | XMS REPORT | Summary of Care ---
:1995 Author Organization [facility] Address [address] [place] [address] Care Team Providers Name Role Phone Adilson Swain MD Primary Care Provider Pcp, Does Not Have A Unavailable Pcp, Does Not Have A Unavailable Reason for Visit Reason Comments New Medication Encounter Details Date Type Department Care Team Description 11/14/2018 Case Management [facility] Women's Olga Ortiz N Medication [facility] 146 [facility], [address] [place] [address] [facility] [address] [place] [address] Allergies No Known Allergiesdocumented as of this encounter (statuses as of 11/14/2018) Medications Medication Sig Dispensed Refills Start Date End Date Status Take by mouth. 0 Acti ve 123/iron/folic/omeg3s (ONE-A-DAY WOMEN'S 1 ORAL) SXR42-gabk,carb,glu-FA- Take 1 TAB-CAP/M2 30 Each 9 06/12/19 [...] Swain, Jeannie De Anda MD Visit Gynecology [address] [place] [address] [address] [place] [address] [phone] Name Type Priority Associated Diagnoses Order S chedule 3 HR GLUCOSE TOLERANCE LAB Routine Elevated glucose E xpected: 11/14/2018, PANEL tolerance test Expires: 10/27 Health Maintenance Due Date Last Done Comments [...] filedocumented in this encounter Visit Diagnoses Diagnosis Elevated glucose tolerance test - Primar y Impaired glucose tolerance test documented in this encounter Insurance Payer Benefit Plan / Subscriber ID Effective Phone Address T ype Group Dates [facility] [id number] 2017-Prese [phone] [address] PPO/POS nt [id number] [place] [address] [facility] xxxxxxxxx 2018-Rebecca Brito [facility] HEALTH PLAN - MANAGED MEDICAID documented as of this encounter
[2019-07-16 18:54] LABS: Absolute Lymphocytes (CBC) 0.9 K/uL (0.7-4.9); Basophils % 0.1 % (0-1.3); Hematocrit 36.2 % (36.0-45.0); Lymphocytes % 5.9 % (15.3-44.8); MPV 10.5 fL (7.6-11.3); RBC Red Blood Cell Count 4.56 M/uL (3.86-4.86)
[2019-07-16 19:00] LABS: Albumin 3.2 g/dL (3.4-5.0); Bilirubin Direct 0.2 mg/dL (0-0.2); Bilirubin Total 0.7 mg/dL (0.2-1.0); Potassium 3.2 mmol/L (3.5-5.1); Protein, Total 7.2 g/dL (6.4-8.2)
[2019-07-16] MEDS ORDERED: NA CHLORIDE 0.9% 1,000 ML ONE (19:06)
[2019-07-16] MEDS ORDERED: ONDANSETRON 4 MG/2 ML VIAL ONE (19:06)
[2019-07-16] MEDS ORDERED: CEFTRIAXONE/SWI 1gm 1 GM/10 ML SYR ONE (19:06)
[2019-07-16 19:43] LABS: Urine Blood TRACE (NEG); Urine Glucose NEGATIVE (NEG); Urine Protein 1+ (NEG); Urine pH 6.5 (5.0-7.0)
--- NOTE | 2019-07-16 19:44 | RAD REPORT ---
EXAM DESCRIPTION: CT - Abdomen Pelvis W Contrast - 07/16/2019 7:26 pm CLINICAL HISTORY: Abdominal pain COMPARISON: July 13, 2019 TECHNIQUE: Computed axial tomography of the abdomen pelvis was obtained. 100 cc Isovue-300 was admin istered intravenously. Oral contrast was not requested which limits evaluation of bowel. All CT scans are performed using dose optimization technique as appropriate and may include automated exposure control or mA/KV adjustment according to patient size. FINDINGS: Bilateral renal calculi. The right hydronephrosis has resolved. The distal right ureteral calculus has resolved. A couple of small low-density areas are present within the right kidney extending to the periphery li giovanni pyelonephritis. The liver, spleen, pancreas, adrenals are unremarkable. There is no evidence diverticulitis. 2 centimeter right ovarian cyst with small amount of free fluid. IMPRESSION: Mild right pyelonephritis Bilateral nonobstructing renal calculi
--- NOTE | 2019-07-16 21:32 | EDPHYS ---
Physician Documentation [facility] [place] Name: Mari Gonzalez Age: 23 yrs Sex: Female : 1995 Arrival Date: 07/16/2019 Time: 18:08 Bed 19 Private MD: ED Physician Sunday Kaufman HPI: 07/15 19:08 This 23 yrs old Female presents to ER via Ambulatory with complaints of jr8 Fever, Possible Kidney Stone. 19:08 The patient reports fever, not measured (subjective), that was measured at 103 degrees jr8 Fahrenheit. Onset: The symptoms/episode began/occurred acutely, 2 day(s) ago. Modifying factors: there are no obvious modifying factors. Associated signs and symptoms: Pertinent positives: abdominal pain, nausea. Severity of symptoms: At their worst the symptoms were moderate in the emergency department the symptoms are unchanged. The patient has not experienced similar symptoms in the past. The patient has been recently seen by a physician:. Patient seen and discharged about 3 days ago for renal stone with hydronephrosis. Stated that she passed stone on Sunday but Sunday and today started to run fever and is having mild right sided flank pain that is intermittent . 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 - Social history:: Smoking status: Patient denies any tobacco usage or history of. ROS: 19:08 Eyes: Negative for injury, pain, redness, and discharge, ENT: Negative for injury, jr8 pain, and discharge, Neck: Negative for injury, pain, and swelling, Cardiovascular: Negative for chest pain, palpitations, and edema, Respiratory: Negative for shortness of breath, cough, wheezing, and pleuritic chest pain, Back: Negative for injury and pain, MS/Extremity: Negative for injury and deformity, Skin: Negative for injury, rash, and discoloration, Neuro: Negative for headache, weakness, numbness, tingling, and seizure. 19:08 Constitutional: Positive for fever. 19:08 Abdomen/GI: Positive for abdominal pain, nausea and vomiting, Negative for diarrhea. Exam: 19:08 Eyes: Pupils equal round and reactive to light, extra-ocular motions intact. Lids and jr8 lashes normal. Conjunctiva and sclera are non-icteric and not injected. Cornea within normal limits. Periorbital areas with no swelling, redness, or edema. ENT: Nares patent. No nasal discharge, no septal abnormalities noted. Tympanic membranes are normal and external auditory canals are clear. Oropharynx with no redness, swelling, or masses, exudates, or evidence of obstruction, uvula midline. Mucous membranes moist. Neck: Trachea midline, no thyromegaly or masses palpated, and no cervical lymphadenopathy. Supple, full range of motion without nuchal rigidity, or vertebral point tenderness. No Meningismus. Cardiovascular: Regular rate and rhythm with a normal S1 and S2. No gallops, murmurs, or rubs. Normal PMI, no JVD. No pulse deficits. Respiratory: Lungs have equal breath sounds bilaterally, clear to auscultation and percussion. No rales, rhonchi or wheezes noted. No increased work of breathing, no retractions or nasal flaring. Abdomen/GI: Soft, non-tender, with normal bowel sounds. No distension or tympany. No guarding or rebound. No evidence of tenderness throughout. Skin: Warm, dry with normal turgor. Normal color with no rashes, no lesions, and no evidence of cellulitis. MS/ Extremity: Pulses equal, no cyanosis. Neurovascular intact. Full, normal range of motion. Neuro: Awake and alert, GCS 15, oriented to person, place, time, and situation. Cranial nerves II-XII grossly intact. Motor strength 5/5 in all extremities. Sensory grossly intact. Cerebellar exam normal. Normal gait. 19:08 Constitutional: The patient appears alert, awake, obviously ill. 19:08 Back: CVA tenderness, that is mild, is noted on the right. Vital Signs: 18:11 BP 114 / 78; Pulse 83; Resp 16 S; Temp 97.4(TE); Pulse Ox 100% on NC; Weight 68.04 kg ca1 (R); Height 5 ft. 6 in. (167.64 cm) (R); Pain 1/10; 21:22 BP 112 / 68; Pulse 74; Resp 14; Pulse Ox 100% on R/A; Pain 3/10; ls4 23:30 BP 118 / 70; Pulse 71; Resp 18; Temp 97.8(O); Pulse Ox 99% on R/A; Pain 1/10; ls4 18:11 Body Mass Index 24.21 (68.04 kg, 167.64 cm) ca1 MDM: 18:19 Patient medically screened. 8 21:30 Data reviewed: vital signs, nurses notes, lab test result(s), radiologic studies, CT [facility] scan. Data interpreted: Pulse oximetry: on room air is 100 %. Interpretation: normal. Counseling: I had a detailed discussion with the patient and/or guardian regarding: the historical points, exam findings, and any diagnostic results supporting the discharge/admit diagnosis, lab results, radiology results, the need for further work-up and treatment in the hospital. Response to treatment: the patient's symptoms have mildly improved after treatment. ED course: Patient with subjective high fever and increased WBC count. CT shows pyelo from the previously obstructed stone she had passed. Scared to go home from how bad she felt earlier. Will admit to [facility] . 07/15 18:19 Order name: Basic Metabolic Panel; Complete Time: 19:11 [facility] 07/15 18:19 Order name: CBC with Diff; Complete Time: 19:00 [facility] 07/15 18:19 Order name: Hepatic Function; Complete Time: 19:11 [facility] 07/15 18:19 Order name: Lipase; Complete Time: 19:11 [facility] 07/15 18:47 Order name: Urine Dipstick--Ancillary (enter results); Complete Time: 19:55 [facility] 07/15 18:47 Order name: Urine --Ancillary (enter results); Complete Time: 19:55 [facility] 07/15 19:01 Order name: CT Abd/Pelvis - IV Contrast Only; Complete Time: 19:47 [facility] 07/15 19:12 Order name: Urine Microscopic Only; Complete Time: 21:55 [facility] 07/15 19:12 Order name: Blood Culture Adult (2) [facility] 07/15 21:56 Order name: Urine Culture [facility] 07/15 22:13 Order name: CBC with Automated Diff [facility] 07/15 22:13 Order name: CBC with Automated Diff [facility] 07/15 22:13 Order name: Comprehensive Metabolic Panel [facility] 07/15 22:13 Order name: Comprehensive Metabolic Panel [facility] 07/15 18:19 Order name: IV Saline Lock; Complete Time: 18:56 [facility] 07/15 18:19 Order name: Labs collected and sent; Complete Time: 18:56 [facility] 07/15 19:12 Order name: Urine Dipstick-Ancillary (obtain specimen); Complete Time: 19:55 [facility] 07/15 22:13 Order name: CONS Pharmacy Consult [facility] 07/15 22:13 Order name: Heart Healthy [facility] Administered Medications: 19:14 Drug: NS 0.9% 1000 ml Route: IV; Rate: 1000 ml; Site: left forearm; ls4 20:15 Follow up: IV Status: Completed infusion; IV Intake: 1000ml ls4 21:32 Follow up: IV Status: Completed infusion; IV Intake: 1000ml ls4 19:14 Drug: Rocephin 1 grams Route: IV; Rate: calculated rate; Site: left forearm; ls4 19:24 Follow up: Response: No adverse reaction; IV Status: Completed infusion; IV Intake: [id number] 19:14 Drug: Zofran (Ondansetron) 4 mg Route: IVP; Site: left forearm; ls4 19:30 Follow up: Response: No adverse reaction; Marked relief of symptoms [facility] 07/16 00:41 Not Given (Patient Refused): fentaNYL (PF) 25 mcg IVP once; RASS on ADMIN: Combtv4, ls4 Very Agttd3, Agttd2, Rstlss1, AlertClm0, Drwsy-1, Lt Sdtn-2, Mod Sdtn-3, Dp Sdtn-4, UnArsble-5 Disposition: 09:10 Co-signature as Attending Physician, Sunday Kaufman MD I agree with the assessment and kdr plan of care. Disposition: 07/16/19 21:32 Hospitalization ordered by Jayden Magallanes for Observation. Preliminary diagnosis is Acute tubulo-interstitial nephritis. - Bed requested for Telemetry/MedSurg (observation). - Status is Observation. ls4 - Condition is Stable. - Problem is new. - Symptoms have improved. Signatures: Dispatcher [employer] [facility] Jailene Fry RN RN kl Rittger, Kevin, MD MD kdr Roszak, Josh, PA PA [facility] Alexandrea Wagner RN RN ls4 Dorothy Barrett RN RN ca1 Corrections: (The following items were deleted from the chart) 07/15 22: 21:32 Hospitalization Ordered by Jayden Magallanes MD for Observation. Preliminary kl diagnosis is Acute tubulo-interstitial nephritis. Bed requested for Telemetry/MedSurg (observation). Status is Observation. Condition is Stable. Problem is new. Symptoms have improved. jr8 07/16 00:05 07/15 22:27 07/16/2019 21:32 Hospitalization Ordered by Jayden Magallanes MD for ls4 Observation. Preliminary diagnosis is Acute tubulo-interstitial nephritis. Bed requested for Telemetry/MedSurg (observation). Status is Observation. Condition is Stable. Problem is new. Symptoms have improved. kl
--- NOTE | 2019-07-16 21:32 | ER ---
Nurse's Notes [facility] [place] Name: Mari Gonzalez Age: 23 yrs Sex: Female : 1995 Arrival Date: 07/16/2019 Time: 18:08 Bed 19 Private MD: Diagnosis: Acute tubulo-interstitial nephritis Presentation: 07/15 18:11 Chief complaint: Patient states: On and off fever x 3 day, Pain on the antoine-lateral ca1 abdomen. Sunday was here and was diagnosed with a kidney stone, reports passing the stone on Sunday. Reports nausea. Denies vomiting. Coronavirus screen: Proceed with normal triage. Patient denies a cough. Patient denies shortness of breath or difficulty breathing. Patient reports a measured and/or subjective temperature greater than 100.4F. Patient denies travel on a cruise ship or to a country the [facility] currently lists as an affected area. Patient denies contact with known and/or suspected case of COVID-19. Ebola Screen: Patient negative for fever greater than or equal to 101.5 degrees Fahrenheit, and additional compatible Ebola Virus Disease symptoms Patient denies exposure to infectious person. Patient denies travel to an Ebola-affected area in the 21 days before illness onset. No symptoms or risks identified at this time. Initial Sepsis Screen: Does the patient meet any 2 criteria? No. Patient's initial sepsis screen is negative. Does the patient have a suspected source of infection? No. Patient's initial sepsis screen is negative. Risk Assessment: Do you want to hurt yourself or someone else? Patient reports no desire to harm self or others. Onset of symptoms was July 16, 2019. 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 - Social history:: Smoking status: Patient denies any tobacco usage or history of. Screenin:39 Abuse screen: Denies threats or abuse. Denies injuries from another. Nutritional ls4 screening: No deficits noted. Tuberculosis screening: No symptoms or risk factors identified. Fall Risk None identified. Assessment: 19:01 Pain: Complains of pain in anterior aspect of right lateral abdomen and right lower ls4 quadrant Pain currently is 1 out of 10 on a pain scale. 19:01 General: Appears in no apparent distress. Behavior is calm, cooperative. Neuro: No ls4 deficits noted. Cardiovascular: No deficits noted. Respiratory: No deficits noted. GI: Bowel sounds present X 4 quads. Abd is soft and non tender X 4 quads. Derm: No deficits noted. No signs and/or symptoms reported regarding the dermatologic system. Musculoskeletal: No deficits noted. No signs and/or symptoms reported regarding the musculoskeletal system. 20:00 Reassessment: Patient appears in no apparent distress at this time. Patient and/or ls4 family updated on plan of care and expected duration. Pain level reassessed. Patient is alert, oriented x 3, equal unlabored respirations, skin warm/dry/pink. 21:00 Reassessment: Patient appears in no apparent distress at this time. Patient and/or ls4 family updated on plan of care and expected duration. Pain level reassessed. Patient is alert, oriented x 3, equal unlabored respirations, skin warm/dry/pink. 22:00 Reassessment: Patient appears in no apparent distress at this time. Patient and/or ls4 family updated on plan of care and expected duration. Pain level reassessed. Patient is alert, oriented x 3, equal unlabored respirations, skin warm/dry/pink. 23:00 Reassessment: Patient appears in no apparent distress at this time. Patient and/or ls4 family updated on plan of care and expected duration. Pain level reassessed. Patient is alert, oriented x 3, equal unlabored respirations, skin warm/dry/pink. 07/16 00:00 Reassessment: Patient appears in no apparent distress at this time. Patient and/or ls4 family updated on plan of care and expected duration. Pain level reassessed. Patient is alert/active/playful, equal unlabored respirations, skin warm/dry/pink. Vital Signs: 07/15 18:11 BP 114 / 78; Pulse 83; Resp 16 S; Temp 97.4(TE); Pulse Ox 100% on NC; Weight 68.04 kg ca1 (R); Height 5 ft. 6 in. (167.64 cm) (R); Pain 1/10; 21:22 BP 112 / 68; Pulse 74; Resp 14; Pulse Ox 100% on R/A; Pain 3/10; ls4 23:30 BP 118 / 70; Pulse 71; Resp 18; Temp 97.8(O); Pulse Ox 99% on R/A; Pain 1/10; ls4 18:11 Body Mass Index 24.21 (68.04 kg, 167.64 cm) ca1 ED Course: 18:08 Patient arrived in ED. ag5 18:14 Triage completed. ca1 18:15 Arm band placed on right wrist. ca1 18:15 Patient has correct armband on for positive identification. Bed in low position. Call ls4 light in reach. Side rails up X 1. Pulse ox on. NIBP on. 18:15 Warm blanket given. Verbal reassurance given. ls4 18:18 Marcus Adamson PA is PHCP. jr8 18:18 Sunday Kaufman MD is Attending Physician. jr8 18:55 Alexandrea Wagner RN is Primary Nurse. ls4 19:14 No apparent distress. ls4 19:14 No provider procedures requiring assistance completed. Inserted saline lock: 20 gauge ls4 in left forearm, using aseptic technique. 19:14 Patient maintains SpO2 saturation greater than 95% on room air. ls4 19:27 CT Abd/Pelvis - IV Contrast Only In Process Unspecified. EDMS 21:31 Jayden Magallanes MD is Hospitalizing Provider. jr8 07/16 00:04 Patient admitted, IV remains in place. intact. ls4 Administered Medications: 07/15 19:14 Drug: NS 0.9% 1000 ml Route: IV; Rate: 1000 ml; Site: left forearm; ls4 20:15 Follow up: IV Status: Completed infusion; IV Intake: 1000ml ls4 21:32 Follow up: IV Status: Completed infusion; IV Intake: 1000ml ls4 19:14 Drug: Rocephin 1 grams Route: IV; Rate: calculated rate; Site: left forearm; ls4 19:24 Follow up: Response: No adverse reaction; IV Status: Completed infusion; IV Intake: [id number] 19:14 Drug: Zofran (Ondansetron) 4 mg Route: IVP; Site: left forearm; ls4 19:30 Follow up: Response: No adverse reaction; Marked relief of symptoms ls4 07/16 00:41 Not Given (Patient Refused): fentaNYL (PF) 25 mcg IVP once; RASS on ADMIN: Combtv4, ls4 Very Agttd3, Agttd2, Rstlss1, AlertClm0, Drwsy-1, Lt Sdtn-2, Mod Sdtn-3, Dp Sdtn-4, UnArsble-5 Intake: 07/15 19:24 IV: 10ml; Total: 10ml. ls4 20:15 IV: 1000ml; Total: 1010ml. ls4 Outcome: 21:32 Decision to Hospitalize by Provider. jr8 07/16 00:05 Patient left the ED. ls4 00:05 Condition: stable ls4 00:05 Admitted to Med/surg accompanied by tech, via wheelchair, room 219, with chart, Report ls4 called to GRACIE AGARWAL 00:05 Instructed on the need for admit. Signatures: Dispatcher [employer] EDMS Marcus Adamson PA PA jr8 Alexandrea Wagner RN RN ls4 Dorothy Barrett RN RN ca1 Keyana Bowman 5 Corrections: (The following items were deleted from the chart) 07/15 23:59 19:14 Inserted saline lock: 20 gauge in right antecubital area, using aseptic ls4 technique. ls4 07/16 00:41 05 21:32 IV Status: Completed infusion; IV Intake: 1000ml ls4 ls4
[2019-07-16 21:54] LABS: Urine Bacteria >50 /HPF (<20); Urine Culture Reflex Order REFLEXED
[2019-07-16 21:55] LABS: Urine RBC NONE SEEN /HPF (NONE SEEN)
[2019-07-16] MEDS ORDERED: ONDANSETRON 4 MG/2 ML VIAL IV PRN (22:10)
[2019-07-17 00:04] VITALS: BMI 26.3
[2019-07-17 00:53] VITALS: O2SAT 100
[2019-07-17] MEDS ORDERED: Meropenem 500 MG VIAL IV SCH (01:00)
[2019-07-17] MEDS ORDERED: SODIUM BICARB 50 MEQ/50ML VIAL ONE (01:02)
[2019-07-17] MEDS ORDERED: D5W 1,000 ML IV ONE (01:03)
[2019-07-17] MEDS: Meropenem 500 MG in NA CHLORIDE 0.9% 100 ML IV SCH ×3 (01:44→16:18)
[2019-07-17] MEDS: D5W 1,000 ML with NA BICARB 8.4% 50 MEQ IV SCH ×8 (01:44→08:10)
--- NOTE | 2019-07-17 03:10 | P.HP ---
Certification for Inpatient Patient admitted to: Inpatient With expected LOS: >2 Midnights Patient will require the following post-hospital care: None Practitioner: I am a practitioner with admitting privileges, knowledge of patient current condition, hospital course, and medical plan of care. Services: Services provided to patient in accordance with Admission requirements found in Title 42 Section 412.3 of the Code of Federal Regulations Patient History Date of Service: 07/16/19 Reason for admission: Right pyelonephritis; nephrolithiasis History of Present Illness: Patient is a 23-year-old female came to the hospital with pain of the right kidney. Patient was found have nephrolithiasis. This was diagnosed a couple of days ago. Patient had right hydronephrosis. Patient had a large kidney stone which patient passed. However patient started having fevers and pain and was diagnosed with right pyelonephritis. Patient be admitted to the hospital for IV hydration and IV antibiotics. Will continue monitoring culture results. Allergies No Known Allergies Allergy (Verified 07/17/19 00:05) Home Medications: Diclofenac Sodium [Voltaren] 75 mg PO BID 07/17/19 Ondansetron HCl 4 mg PO Q6HP PRN 07/17/19 Tamsulosin [Flomax*] 0.4 mg PO DAILY 07/17/19 - Past Medical/Surgical History Has patient received pneumonia vaccine in the past: No Diabetic: No Past Medical History: Patient denies medical history Past Surgical History: Patient denies surgical history - Family History Father Family History: Reviewed- Non-Contributory - Social History Smoking Status: Never smoker Alcohol use: Yes CD- Drugs: No Place of Residence: Home Review of Systems 10-point ROS is otherwise unremarkable Physical Examination - Vital Signs Temperature: 97.0 F Blood Pressure: 105/63 Pulse: 74 Respirations: 18 Pulse Ox (%): 100 - Physical Exam General: Alert, In no apparent distress, Oriented x3 HEENT: Atraumatic, PERRLA, Mucous membr. moist/pink, EOMI, Sclerae nonicteric Neck: Supple, 2+ carotid pulse no bruit, No LAD, Without JVD or thyroid abnormality Respiratory: Clear to auscultation bilaterally, Normal air movement Cardiovascular: Regular rate/rhythm, Normal S1 S2, No murmurs Gastrointestinal: Normal bowel sounds, Soft and benign, Non-distended, Ten derness (Right flank tenderness) Musculoskeletal: No clubbing, No swelling, No tenderness Integumentary: No rashes Neurological: Normal gait, Normal speech, Normal strength at 5/5 x4 extr, Normal tone, Sensation intact, Cranial nerves 3-12 intact, Normal affect Lymphatics: No axilla or inguinal lymphadenopathy - Studies Laboratory Data (last 24 hrs) 07/16/19 18:35: WBC 15.0 H D, Hgb 12.0, Hct 36.2, Plt Count 101 L D 07/16/19 18:35: Sodium 134 L, Potassium 3.2 L, BUN 8, Creatinine 0.78, Glucose 111 H, Total Bilirubin 0.7, AST 13 L, ALT 14, Alkaline Phosphatase 56, Lipase 72 L Assessment & Plan - Problems (Diagnosis) (1) Pyelonephritis of right kidney Current Visit: Yes Status: Acute (2) Nephrolithiasis Current Visit: Yes Status: Acute - Plan Plan: 1. IV hydration and IV antibiotics 2. Pain control 3. Await urine culture results 4. Send kidney stone to pathology for review 5. Monitor renal function closely 6. GI and DVT prophylaxis Discharge Plan: Home Plan to discharge in: Greater than 2 days - Advance Directives Does patient have a Living Will: No Does patient have a Durable POA for Healthcare: No - Code Status/Comfort Care Code Status Assessed: Yes Code Status: Full Code Critical Care: No Time Spent Managing PTS Care (In Minutes): 40
[2019-07-17] MEDS: ACETAMINOPHEN 500 MG TAB PO PRN ×2 (03:28→09:27)
[2019-07-17] MEDS: MORPHINE 2 MG/ML SYR IV PRN ×2 (03:30→09:20)
[2019-07-17 06:06] LABS: Basophils % 0.2 % (0-1.3); Hematocrit 31.2 % (36.0-45.0); Lymphocytes % 9.7 % (15.3-44.8); MPV 10.3 fL (7.6-11.3); RBC Red Blood Cell Count 3.98 M/uL (3.86-4.86)
[2019-07-17 06:13] LABS: ALT/SGPT 10 U/L (12-78); AST/SGOT 7 U/L (15-37); Albumin 2.5 g/dL (3.4-5.0); Alkaline Phosphatase 46 U/L (45-117); BUN Blood Urea Nitrogen 8 mg/dL (7-18); Bicarbonate 27 mmol/L (21-32); Bilirubin Total 0.3 mg/dL (0.2-1.0); Glucose Level 123 mg/dL (74-106); Potassium 3.6 mmol/L (3.5-5.1); Protein, Total 5.9 g/dL (6.4-8.2); Sodium Level 141 mmol/L (136-145)
[2019-07-17 06:49] LABS: Blood Morphology Comment NOT SEEN (NOT SEEN); Platelet Estimate DECR; Urine White Blood Cell Casts OK
[2019-07-17] MEDS ORDERED: ACETAMINOPHEN 500 MG TAB PO ONE (09:26)
[2019-07-17] MEDS: NA CHLORIDE 0.9% 1,000 ML IV SCH ×2 (10:15→23:40)
[2019-07-17 10:18] LABS: Protime INR 1.27
--- NOTE | 2019-07-17 11:53 | RAD REPORT ---
EXAM DESCRIPTION: US - Renal Ultrasound-Complete - 07/17/2019 11:21 am CLINICAL HISTORY: PYELO;NEPHROLITHIASIS COMPARISON: Abdomen Pelvis W Contrast dated 07/16/2019 FINDINGS: The right kidney measures 13.2 x 4.3 x 6.0 cm. The left kidney measures 11.2 x 5.9 x 5.3 cm. Renal cortical thickness and echogenicity are normal. No hydronephrosis or suspicious renal mass. Nonobstructing calculi seen lower pole the right kidney. Trace amount of fluid is seen around the ri ght kidney. Urinary bladder is contracted precluding accurate assessment. IMPRESSION: No hydronephrosis or suspicious renal mass. Nonobstructing calculi lower pole of the right kidney. Minimal perinephric fluid on the right. This would be consistent with the pyelonephritis diagnosis de tailed on the CT study.
[2019-07-17] MEDS: HYDROCODONE/APAP 10/325 TAB PO PRN (23:40)
[2019-07-18] MEDS: Meropenem 500 MG in NA CHLORIDE 0.9% 100 ML IV SCH ×3 (00:49→16:34)
[2019-07-18 07:36] LABS: ALT/SGPT 18 U/L (12-78); AST/SGOT 18 U/L (15-37); Albumin 2.5 g/dL (3.4-5.0); Alkaline Phosphatase 47 U/L (45-117); BUN Blood Urea Nitrogen 5 mg/dL (7-18); Bicarbonate 26 mmol/L (21-32); Bilirubin Total 0.4 mg/dL (0.2-1.0); Glucose Level 92 mg/dL (74-106); Potassium 3.4 mmol/L (3.5-5.1); Protein, Total 6.1 g/dL (6.4-8.2); Sodium Level 142 mmol/L (136-145)
[2019-07-18 07:49] LABS: Absolute Lymphocytes (CBC) 1.5 K/uL (0.7-4.9); Basophils % 0.4 % (0-1.3); Hematocrit 31.5 % (36.0-45.0); Lymphocytes % 21.2 % (15.3-44.8); MPV 10.9 fL (7.6-11.3); RBC Red Blood Cell Count 3.98 M/uL (3.86-4.86)
--- NOTE | 2019-07-18 08:23 | P.PN ---
Subjective Date of Service: 07/18/19 Patient is still feeling weak. She had a headache in her left side is hurting her. She still has some dark urine. If she has anymore at home and she wants to go home but she does not know if she is ready. At this time, will continue with current plan of care. Continue with IV antibiotics. Patient did have some thrombocytopenia and this may be related to early DIC. Review of Systems 10-point ROS is otherwise unremarkable Physical Examination - Vital Signs Temperature: 97.0 F Blood Pressure: 105/63 Pulse: 74 Respirations: 18 Pulse Ox (%): 100 - Physical Exam General: Alert, In no apparent distress, Oriented x3 Respiratory: Clear to auscultation bilaterally, Normal air movement Cardiovascular: Regular rate/rhythm, Normal S1 S2, Systolic murmur Gastrointestinal: Soft and benign, Non-distended, Tenderness (Left and right flank tenderness) Musculoskeletal: No clubbing, No swelling, No erythema Assessment & Plan - Problems (Diagnosis) (1) Pyelonephritis of right kidney Current Visit: Yes Status: Acute (2) Nephrolithiasis Current Visit: Yes Status: Acute (3) DIC (disseminated intravascular coagulation) Current Visit: Yes Status: Acute (4) Thrombocytopenia Current Visit: Yes Status: Acute - Plan Plan: Continue with current plan of care as mentioned below; patient is septic and possibly has early DIC with thrombocytopenia. Most likely related to infection. No signs of hemolysis. Bilirubin was normal from the be getting as is the LDH. 1. Continue with IV hydration and IV antibiotics pending culture results 2. Continue with Pain control 3. Await urine culture results 4. Chemical analysis of kidney stone pending 5. Monitor renal function closely 6. GI and DVT prophylaxis Discharge Plan: Home Plan to discharge in: Greater than 2 days - Advance Directives Does patient have a Living Will: No Does patient have a Durable POA for Healthcare: No - Code Status/Comfort Care Code Status: Full Code Critical Care: No Time Spent Managing PTS Care (In Minutes): 35
--- NOTE | 2019-07-18 08:26 | P.PN ---
Subjective Date of Service: 07/17/19 No new changes. Patient doing better. However, still having some pain. Patient also found have thrombocytopenia this morning. Total bilirubin is unremarkable; actually it is low unlikely to be hemolysis. most likely related to infectious process. Continue IV antibiotics Review of Systems 10-point ROS is otherwise unremarkable Physical Examination - Vital Signs Temperature: 97.0 F Blood Pressure: 105/63 Pulse: 74 Respirations: 18 Pulse Ox (%): 100 - Physical Exam General: Alert, In no apparent distress, Oriented x3 Respiratory: Clear to auscultation bilaterally, Normal air movement Cardiovascular: Regular rate/rhythm, Normal S1 S2, No murmurs Gastrointestinal: Normal bowel sounds, Soft and benign, Non-distended, No rebound, No guarding, Tenderness Musculoskeletal: No clubbing, No swelling Neurological: Normal strength at 5/5 x4 extr, Normal tone, Sensation intact Assessment & Plan - Problems (Diagnosis) (1) Pyelonephritis of right kidney Current Visit: Yes Status: Acute (2) Nephrolithiasis Current Visit: Yes Status: Acute (3) DIC (disseminated intravascular coagulation) Current Visit: Yes Status: Acute (4) Thrombocytopenia Current Visit: Yes Status: Acute - Plan Plan: Continue current plan of care as mentioned below: 1. Continue with IV hydration and IV antibiotics pending culture results 2. Continue with Pain control 3. Await urine culture results 4. Chemical analysis of kidney stone pending 5. Monitor renal function closely 6. GI and DVT prophylaxis Discharge Plan: Home Plan to discharge in: Greater than 2 days - Advance Directives Does patient have a Living Will: No Does patient have a Durable POA for Healthcare: No - Code Status/Comfort Care Code Status: Full Code Critical Care: No Time Spent Managing PTS Care (In Minutes): 30
[2019-07-18 10:50] LABS: Blood Morphology Comment NOT SEEN (NOT SEEN); Platelet Estimate DECR; Urine White Blood Cell Casts OK
[2019-07-18] MEDS: NA CHLORIDE 0.9% 1,000 ML IV SCH (11:23)
[2019-07-18] MEDS: HYDROCODONE/APAP 10/325 TAB PO PRN (13:44)
[2019-07-18 17:42] VITALS: BP 107/52; TEMP 97.1
--- NOTE | 2019-07-19 01:37 | P.DS ---
Discharge Date: 07/18/19 Disposition: ROUTINE DISCHARGE Discharge Condition: GOOD Reason for Admission: Right pyelonephritis; nephrolithiasis - Problems (1) Pyelonephritis of right kidney Status: Acute (2) Nephrolithiasis Status: Acute (3) DIC (disseminated intravascular coagulation) Status: Acute (4) Thrombocytopenia Status: Acute Brief History of Present Illness: Patient is a 23-year-old female came to the hospital with pain of the right kidney. Patient was found have nephrolithiasis. This was diagnosed a couple of days ago. Patient had right hydronephrosis. Patient had a large kidney stone which patient passed. However patient started having fevers and pain and was diagnosed with right pyelonephritis. Patient be admitted to the hospital for IV hydration and IV antibiotics. Will continue monitoring culture results. Hospital Course: Patient on IV antibiotics for the last 2-1/2 days. Patient clinically doing better. She feels well enough to go home. She ambulated without any difficulty. We did discuss with her getting continued IV antibiotics pending cultures. But she wanted to be home with her baby. She is not breast-feeding. At this time, she is ok for discharge. She will need to continue with oral antibiotics for 7-10 more days. Outpatient follow-up with PCP in 1-2 weeks. She will need to call me in 48-72 hr to get culture results. Close outpatient follow with PCP in 1-2 weeks. Return to the ER if symptoms worsen. Vital Signs/Physical Exam: Temp Pulse Resp BP Pulse Ox 97.1 F 70 16 107/52 L 98 07/18/19 16:00 07/18/19 16:00 07/18/19 16:00 07/18/19 16:00 07/18/19 16:00 General: Alert, In no apparent distress, Oriented x3 Laboratory Data at Discharge: WBC 7.1 K/uL (4.3-10.9) D 07/18/19 07:03 Hgb 10.6 g/dL (12.0-15.0) L 07/18/19 07:03 Hct 31.5 % (36.0-45.0) L 07/18/19 07:03 Plt Count 87 K/uL (152-406) L* 07/18/19 07:03 PT 14.9 SECONDS (9.5-12.5) H 07/17/19 09:42 INR 1.27 07/17/19 09:42 APTT 30.4 SECONDS (24.3-36.9) 07/17/19 09:42 Sodium 142 mmol/L (136-145) 07/18/19 07:03 Potassium 3.4 mmol/L (3.5-5.1) L 07/18/19 07:03 BUN 5 mg/dL (7-18) L 07/18/19 07:03 Creatinine 0.53 mg/dL (0.55-1.3) L 07/18/19 07:03 Glucose 92 mg/dL (74-106) 07/18/19 07:03 Total Bilirubin 0.4 mg/dL (0.2-1.0) 07/18/19 07:03 AST 18 U/L (15-37) 07/18/19 07:03 ALT 18 U/L (12-78) 07/18/19 07:03 Alkaline Phosphatase 47 U/L (45-117) 07/18/19 07:03 Lipase 72 U/L (73-393) L 07/16/19 18:35 Home Medications: Ondansetron HCl 4 mg PO Q6HP PRN 07/17/19 Tamsulosin [Flomax*] 0.4 mg PO DAILY 07/17/19 Cefdinir [Omnicef] 300 mg PO BID #14 capsule 07/18/19 Hydrocodone 10/APAP 325 [[place] 10/325*] 1 tab PO Q6H PRN #30 tab 07/18/19 New Medications: Hydrocodone 10/APAP 325 [[place] 10/325*] 1 tab PO Q6H PRN #30 tab PRN Reason: Pain Scale 5-7 (Moderate) Cefdinir [Omnicef] 300 mg PO BID #14 capsule Patient Discharge Instructions: OK TO DC IV AND DC HOME. FOLLOW-UP WITH PRIMARY CARE PROVIDER IN 1-2 WEEKS. RETURN TO THE ER IF symptoms worsen. CALL or TEXT DR. HUIZAR AT [phone] IF ANY QUESTIONS REGARDING HOSPITAL STAY. PLEASE CALL THE FLOOR AT [phone] IF ANY MEDICATION OR NURSING QUESTIONS. Diet: Regular Activity: Fall precautions Time spent managing pt's care (in minutes): 35
== END 2019-07-18 22:09 | disposition home or self-care (01) | DRG 689 ==
LOC: ER 18:06 → ERHOLD 22:23 → 2ND 23:21
PROVIDERS: ADMIT Hospitalist; ATTEND Hospitalist
DX: N13.6 Pyonephrosis (principal); D65 Disseminated intravascular coagulation [defibrination syndrome]; N20.0 Calculus of kidney; Z79.899 Other long term (current) drug therapy; Z79.890 Hormone replacement therapy
CPT/HCPCS: 36415; 74177; 76770; 80048; 80053; 80076; 81003; 81015; 81025; 82360; 83010; 83615; 83690; 84145; 85025; 85610; 85730; 87040; 87077; 87086; 87088; 87186; 88300; 96361; 96374; 96375; 99285; J0696; J2270; J2405; J7030; Q9967